=== PATIENT | male | born 1970 | race Caucasian/White ===

== ENCOUNTER 2019-04-14 15:49 | Emergency (ER) | payer OTHER ==
[~2019-04-14] VITALS: Ht 180.3 cm; Wt 87.3 kg
[~2019-04-14 15:49] MED LIST: BACTDS PO; CEPH-443 PO
[2019-04-14 15:52] VITALS: BP 147/66; PULSE 66; RESP 18; Ht 180.3 cm; Wt 87.3 kg
--- NOTE | 2019-04-14 17:00 | ERD ---
ER Documentation Chief Complaint Chief Complaint LT ANKLE PAIN X 2 MONTHS , WORSE TODAY HPI 48 y/o male, presents to the emergency department, complaining of persistent left ankle pain after sustaining a ankle sprain 2 months ago. The patient reports that the pain has been getting worse during the last week after working standing up for prolonged period of time. She denies recent trauma, no distal weakness, numbness or tingling. No medications taken for pain. He is requesting x-rays of his ankle. ROS All systems reviewed and are negative except as per history of present illness. Medications Home Meds Active Scripts Ibuprofen* (Motrin*) 400 Mg Tab, 400 MG PO Q6H PRN for PAIN AND OR ELEVATED TEMP, #20 TAB Prov:PUNEET CHANG MD 04/14/19 Sulfamethoxazole-Trimethoprim* (Bactrim* DS) 800-160 Mg Tab, 1 TAB PO BID, #14 TAB 0 Refills Prov:NICOLETTE BOONE PA-C 01/13/16 Cephalexin* (Keflex*) 500 Mg Capsule, 500 MG PO BID, #14 CAP 0 Refills Prov:NICOLETTE BOONE PA-C 01/11/16 Allergies Allergies: Coded Allergies: No Known Allergy (Unverified , 01/13/16) PMhx/Soc Medical and Surgical Hx: pt denies Medical Hx, pt denies Surgical Hx Hx Alcohol Use: No Hx Substance Use: No Hx Tobacco Use: No Smoking Status: Never smoker FmHx Family History: No diabetes, No coronary disease Physical Exam Vitals Vital Signs Date Temp Pulse Resp B/P (MAP) Pulse Ox O2 O2 Flow FiO2 Time Delivery Rate 04/14/19 98.1 66 18 147/66 97 15:52 (93) Physical Exam Const: No acute distress Head: Atraumatic Eyes: Normal Conjunctiva ENT: Normal External Ears, Nose and Mouth. Neck: Full range of motion. No meningismus. Resp: Clear to auscultation bilaterally Cardio: Regular rate and rhythm, no murmurs Abd: Soft, non tender, non distended. Normal bowel sounds Skin: No petechiae or rashes Back: No midline or flank tenderness Ext: Left ankle: Normal inspection, full passive range of motion, distal neurovascular exam intact. Neur: Awake and alert Psych: Normal Mood and Affect Results 24 hrs Patient: DIONNISH : 1970 Age: 48 Sex: M MR #: [id number] [facility] #: [id number] DOS: 04/14/19 1659 Ordering MD: PUNEET CHANG MD Location: [facility] Room/Bed: PROCEDURE: XR left Ankle. CLINICAL INDICATION: Ankle pain for 2 months TECHNIQUE: Three views of the left ankle were performed. COMPARISON: None. FINDINGS: There is no acute fracture or dislocation. Ankle mortise is intact. There is minimal osseous spurring within the distal tibia and within the dorsal aspect of the talonavicular and naviculocuneiform joints. No significant joint effusion is present. There is a plantar calcaneal heel spur as well as a small enthesophyte within the posterior calcaneus at the Achilles tendon insertion. The soft tissues are unremarkable. RPTAT: ZZ IMPRESSION: 1. No acute bony abnormality. 2. 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 3. Plantar calcaneal heel spur and Achilles enthesopathy. Procedures/MDM Acute right ankle pain: no red flags. Differential diagnosis include but not limited to: Ankle sprain/strain, ligament injury, arthritis; low suspicion for fracture, dislocation, septic arthritis. Neurovascular exam grossly intact. no clinical findings suggestive of acute infectious process, no deformity, no rashes. Pertinent Data: X-rays: No fracture or dislocation Physical examination and clinical presentation consistent most likely with sequela of a left ankle sprain. During the ED course the patient received crutches. Results and clinical impression discussed with patient who agrees with management. The patient is stable to be treated outpatient and will be discharged home with recommendations for ice, rest, NSAIDs 3 times daily for 5 days and close monitoring. The patient was instructed to follow up with the primary care provider in the next 48h. If symptoms persist, worsen or new symptoms develop, then patient should return to the ED immediately. Instructions explained and given to patient with acknowledgment and demonstrated understanding. Disclaimer: Inadvertent spelling and grammatical errors are likely due to EHR/dictation software use and do not reflect on the overall quality of patient care. Also, please note that the electronic time recorded on this note does not necessarily reflect the actual time of the patient encounter. Departure Diagnosis: Primary Impression: Ankle injury Additional Impression: History of ankle sprain Condition: Stable Patient Instructions: Treating Ankle Sprains Additional Instructions: Thank you very much for allowing us to participate in your care. Your health and safety is our top priority at [facility]. The evaluation in the emergency department has been done to rule out an acute emergency, therefore, chronic conditions like malignancy or other diseases have not been evaluated; therefore, you need to follow up with a primary care provider in the next 48h. If symptoms persist, worsen or new symptoms develop, then patient should return to the ED immediately. Call your primary care doctor TOMORROW for an appointment during the next 2-4 days and bring all the information provided. Have prescriptions filled and follow precisely the directions on the label. If the symptoms get worse and your provider is unavailable, return to the Emergency Department immediately. PUNEET CHANG MD April 14, 2019 17:00
[2019-04-14] MEDS ORDERED: IBUP-1561 PO (17:47)
== END 2019-04-14 16:10 | disposition home or self-care (01) ==
LOC: FTE 15:49
DX: S99.912A Unspecified injury of left ankle, initial encounter (principal); X50.1XXA Overexertion from prolonged static or awkward postures, initial encounter; Y92.9 Unspecified place or not applicable
CPT/HCPCS: 73610; Z7502